=== PATIENT | female | born 1980 | race Caucasian/White ===

== ENCOUNTER → 2020-02-16 08:21 | Outpatient (CLI) | payer OTHER, SELFPAY ==
[2019-07-18 10:09] VITALS: BMI 21.9
--- NOTE | 2020-02-16 08:22 | BI_ITS ---
MAMMOGRAPHY - BILATERAL SCREENING REASON FOR EXAM: Female, 39 years old. Routine annual screening examination. PERTINENT HISTORY: Non-contributory. TECHNIQUE: Digital bilateral breast sayda (3D mammographic acquisition) in the CC and MLO projections. 2-D mediolateral oblique (MLO) and craniocaudad (CC) views of both breasts were obtained. CAD: Full Field Digital Mammography with Computer Added Detection was performed. COMPARISON: None. Baseline examination. FINDINGS: Breast Composition: The breasts are extremely dense, which lowers the sensitivity of mammography. There are no dominant masses or suspicious calcifications. No other significant abnormalities are identified. BI/SCREEN MAMM (CAD) W/SAYDA BILAT IMPRESSION: Negative screening mammogram. Yearly followup mammogram recommended. (A) ASSESSMENT CATEGORY: BIRADS Category 1: Negative. A letter regarding these results will be sent to the patient by the facility within 30 days. Approximately 10% of breast cancers are not detected by mammography. A normal mammogram should not delay biopsy of a clinically suspicious abnormality. [id number] Electronically Signed: Hua Bautista, at 9:23 EDT , Service support ,
[2020-02-21 17:33] LABS: HPV APTIMA, High Risk Negative (Negative)
== END ==
PROVIDERS: Family Provider Internal Medicine; PCP Internal Medicine; Referring Provider Nurse Practitioner Women's Health; Visit Provider Nurse Practitioner Women's Health
DX: Z12.31 Encounter for screening mammogram for malignant neoplasm of breast (principal); Z12.4 Encounter for screening for malignant neoplasm of cervix
CPT/HCPCS: 77063; 77067; 87624; 88175; G0145

== ENCOUNTER → 2021-02-16 12:19 | Outpatient (CLI) | payer OTHER, SELFPAY ==
[2020-02-16 09:01] VITALS: BMI 21.9
--- NOTE | 2021-02-16 12:22 | BI_ITS ---
MAMMOGRAPHY - BILATERAL SCREENING REASON FOR EXAM: Female, 40 years old. Routine annual screening examination. PERTINENT HISTORY: Screening TECHNIQUE: Digital bilateral breast sayda (3D mammographic acquisition) in the CC and MLO projections. 2-D mediolateral oblique (MLO) and craniocaudad (CC) views of both breasts were obtained. CAD: Full Field Digital Mammography with Computer Added Detection was performed. COMPARISON: Previous mammogram obtained on 02/16/2020 FINDINGS: Breast Composition: Dense There are no dominant masses or suspicious calcifications. No other significant abnormalities are identified. BI/SCRN MAMM (CAD)W/SAYDA BILAT IMPRESSION: Stable bilateral screening mammogram. Yearly follow-up mammogram recommended. (A) ASSESSMENT CATEGORY: BIRADS Category 1: Negative. A letter regarding these results will be sent to the patient by the facility within 30 days. BR1 Approximately 10% of breast cancers are not detected by mammography. A normal mammogram should not delay biopsy of a clinically suspicious abnormality. [id number] Electronically Signed: Amadeo Hart DO at 14:02 EDT Tel , Service support ,
== END ==
PROVIDERS: PCP Internal Medicine; Visit Provider Nurse Practitioner Women's Health
DX: Z12.31 Encounter for screening mammogram for malignant neoplasm of breast (principal)
CPT/HCPCS: 77063; 77067

== ENCOUNTER → 2022-02-20 | Outpatient (CLI) | payer OTHER, SELFPAY ==
--- NOTE | 2022-02-20 14:30 | BI_ITS ---
MAMMOGRAPHY - BILATERAL SCREENING REASON FOR EXAM: Female, 41 years old. Routine annual screening examination. PERTINENT HISTORY: Non-contributory. TECHNIQUE: Digital bilateral breast sayda (3D mammographic acquisition) in the CC and MLO projections. 2-D mediolateral oblique (MLO) and craniocaudad (CC) views of both breasts were obtained. CAD: Full Field Digital Mammography with Computer Added Detection was performed. COMPARISON: Comparison is made with prior study dated 02/16/2021 and 02/16/2020. FINDINGS: Breast Composition: The breasts are extremely dense, which lowers the sensitivity of mammography. There are no dominant masses or suspicious calcifications. No other significant abnormalities are identified. There has been no significant change since the prior study. BI/SCRN MAMM (CAD)W/SAYDA BILAT IMPRESSION: Stable bilateral screening mammogram. Yearly follow-up mammogram recommended. (A) ASSESSMENT CATEGORY: BIRADS Category 1: Negative. A letter regarding these results will be sent to the patient by the facility within 30 days. Approximately 10% of breast cancers are not detected by mammography. A normal mammogram should not delay biopsy of a clinically suspicious abnormality. [id number] Electronically Signed: Hua Bautista MD at 8:14 EDT ,
== END | disposition home or self-care (01) ==
LOC: OPBI 14:29
PROVIDERS: PCP Internal Medicine; Referring Provider Nurse Practitioner Women's Health; Visit Provider Nurse Practitioner Women's Health
DX: Z12.31 Encounter for screening mammogram for malignant neoplasm of breast (principal)
CPT/HCPCS: 77063; 77067

== ENCOUNTER → 2022-10-31 | Outpatient (CLI) | payer OTHER, SELFPAY ==
--- NOTE | 2022-10-31 15:59 | US_ITS ---
STUDY: ULTRASOUND OF THE FEMALE PELVIS - COMPLETE REASON FOR EXAM: Female, 41 years old. AUB LMP: TECHNIQUE: Transabdominal and transvaginal TECHNICAL QUALITY: Adequate. COMPARISON: None. FINDINGS: The uterus is anteverted and is in a midline position. The uterus measures 12.2 x 7.9 x 7.4 cm. Normal uterine cervix. The endometrium measures 42 mm in thickness, endometrial lining is heterogeneous and there is suggestion of a possible mass measuring 5.5 x 5.4 x 3.8 cm encasing the IUD possibly representing a hematoma although submucosal fibroid or other endometrial neoplasm not entirely excluded.. There is no demonstrated myometrial mass. I.U.D. - IUD is noted within the lower endometrial canal The right ovary is visualized. The right ovary measures 3.5 x 2.2 x 1.7 cm. There is no right ovarian cyst or ovarian mass. There is no visualized right adnexal mass or complex lesion. There is normal arterial and normal venous vascularity. The left ovary is visualized. The left ovary measures 2.3 x 2 x 1.5 cm. There is no left ovarian cyst or ovarian mass. There is no visualized left adnexal mass or complex lesion. There is normal arterial and normal venous vascularity. There is no fluid in the cul-de-sac. US/Pelvic w/ Transvaginal IMPRESSION: Markedly thickened endometrial lining appears heterogeneous with possible associated mass measuring 5.5 x 5.4 x 3.8 cm which contains malpositioned IUD within the lower uterine segment possibly representing hematoma.. Submucosal fibroid or other nonspecific endometrial mass is not excluded. Clinical correlation recommended MRI of the uterus may be helpful for further evaluation if clinically warranted Electronically Signed: Philip Nielsen MD at 17:38 EDT ,
== END | disposition home or self-care (01) ==
LOC: US 15:58
PROVIDERS: PCP Internal Medicine; Referring Provider Nurse Practitioner Women's Health; Visit Provider Nurse Practitioner Women's Health
DX: N93.9 Abnormal uterine and vaginal bleeding, unspecified (principal); R10.2 Pelvic and perineal pain
CPT/HCPCS: 76830; 76856

== ENCOUNTER → 2022-11-01 | Outpatient (CLI) | payer OTHER, SELFPAY ==
[2022-11-01 09:14] LABS: Absolute Lymphocyte Count 1.55 X10^3/uL (0.83-4.51); Absolute Neutrophil Count 5.2 X10^3/uL (2.0-7.7); Basophil# 0.03 X10^3/uL; Basophil% 0.4 % (0-1); Eosinophils% 1.4 % (0-5); Hematocrit 39.3 % (37-47); Hemoglobin 12.9 g/dL (12.0-15.0); Lymphocyte # 1.55 X10^3/ul (0.83-4.51); Lymphocyte % 21.2 % (19-41); Mean Corp Hgb Conc 32.8 g/dL (32-36); Mean Corpuscular Hgb 30.4 pg (27.0-32.0); Mean Corpuscular Volume 92.7 fL (81-99); Mean Platelet Vol. 10.8 fl (6.2-12.0); Monocyte# 0.41 X10^3/uL; Monocyte% 5.6 % (0-10); NRBC Flagged by Analyzer 0 % (0-5); Neutrophil # 5.19 X10^3/uL (2.7-7.7); Neutrophil % 71.1 % (47-70); Platelet Count 182 K/mm3 (150-450); RBC Distribution Width CV 12.7 % (11.6-14.6); RBC Distribution Width SD 42.9 fl (35.1-43.9); Red Blood Count 4.24 M/mm3 (4.2-5.4); White Blood Count 7.3 K/mm3 (4.4-11.0)
== END | disposition home or self-care (01) ==
LOC: PAVLAB 09:00
PROVIDERS: PCP Internal Medicine; Referring Provider Nurse Practitioner Women's Health; Visit Provider Nurse Practitioner Women's Health
DX: N92.1 Excessive and frequent menstruation with irregular cycle (principal)
CPT/HCPCS: 36415; 85025; 86850; 86900; 86901

== ENCOUNTER 2022-11-07 09:18 | Day surgery (SDC) | payer OTHER, SELFPAY ==
[2022-11-07] VITALS (8 sets, daily range): BP systolic 89–119; BP diastolic 58–78; PULSE 65–79; RESP 18; TEMP 36.2–37.1; O2SAT 100; BMI 22.6
--- NOTE | 2022-11-07 09:12 | PCM.HP.BLA ---
History and Physical Date of Admission: 11/07/22 Intake Vital Signs ? 11/02/2307:35 11/02/2307:41 Height 5 ft 2 in 5 ft 2 in Weight: ? 126 lb 6 oz BMI ? 23.1 BP ? 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 PFSH Surgical History? History of repair of anterior cruciate ligament of right knee Social History? Smoking Status:? Never smoker alcohol intake:? current details:? occasionally substance use type:? does not use caffeine:? Yes what type of physical activity do you participate in:? walking frequency:? daily seatbelt use:? always do you feel safe at home:? Yes additional social history:? -[employer] Patient is a teacher HPI AUB Details: FLAQUITO DAVIS is a 41 year old who presents for prolonged bleeding X 4 weeks. She has an IUD.? States feeling tired and week not thinking clearly.? Normal BUSINESS DEVELOPMENT ASSISTANT exam 02/2022 and IUD strings noted. Her h/h is stable and Ultrasound was performed showing the following: FINDINGS: The uterus is anteverted and is in a midline position.? The uterus measures 12.2 x 7.9 x 7.4 cm.? Normal uterine cervix.? The endometrium measures 42 mm in thickness, endometrial lining is heterogeneous and there is suggestion of a possible mass measuring 5.5 x 5.4 x 3.8 cm encasing the IUD possibly representing a hematoma although submucosal fibroid or other endometrial neoplasm not entirely excluded..? There is no demonstrated myometrial mass. ? I.U.D. - IUD is noted within the lower endometrial canal The right ovary is visualized.? The right ovary measures 3.5 x 2.2 x 1.7 cm.? There is no right ovarian cyst or ovarian mass.? There is no visualized right adnexal mass or complex lesion. There is normal arterial and normal venous vascularity. The left ovary is visualized.? The left ovary measures 2.3 x 2 x 1.5 cm. There is no left ovarian cyst or ovarian mass.? There is no visualized left adnexal mass or complex lesion.? There is normal arterial and normal venous vascularity. There is no fluid in the cul-de-sac. US/Pelvic w/ Transvaginal IMPRESSION: Markedly thickened endometrial lining appears heterogeneous with possible associated mass measuring 5.5 x 5.4 x 3.8 cm which contains malpositioned IUD within the lower uterine segment possibly representing hematoma.. Submucosal fibroid or other nonspecific endometrial mass is not excluded. Clinical correlation recommended MRI of the uterus may be helpful for further evaluation if clinically warranted History ? ? ? 3 ? Elective abortions ? Hx Para ? ? ? 2 ? Spontaneous abortions ? Hx # Term Pregnancies ? Ectopic pregnancies ? Hx # Pregnancies ? Multiple births ? # of living children ? Past Pregnancies Del. Date Name GA/Weeks Outcome Route Bth Weight Infant Gen Labor Lgth Anesthesia Del Locatn Provider FOB Unknown Sandeep-2005 ? Unknown Jitendra-2007 ? ROS Const Constitutional: Reports system reviewed and no additional complaints, except as documented Eyes Eyes: Reports system reviewed and no additional complaints, except as documented GI GI: Denies abdominal pain or change in bowel habits : Reports as per HPI Exam Const General: cooperative and no acute distress Nutritional Appearance: well nourished Orientation: oriented x3 Chest: normal inspiratory effort GI: abdomen non-tender External Female Exam: normal external appearance Speculum Exam - Vagina: normal appearance of the vagina and normal vaginal discharge (heavy menses, multiple clots) Speculum Exam - Cervix: normal appearance of the cervix (active bleeding. No strings were identified and not able to tease down)- on prior exam Bimanual Exam- Vagina & Uterus: uterine shape normal, non-tender and enlarged (minimally) Bimanual Exam- Adnexa, other: normal adnexae, no masses and non-tender Extremities: no edema, no tenderness Coding Level of Care Code Off vis,est,level 3 Diagnoses Menorrhagia with irregular cycle? N92.1 Uterine mass? N85.8 Fatigue? R53.83 IUD complication? T83.9XXA Thickened endometrium? R93.89 Assessment and Plan Assessment and Plan (1) Menorrhagia with irregular cycle: ?Status:?Acute (2) Uterine mass: ?Status:?Acute (3) Fatigue: ?Status:?Acute (4) IUD complication: ?Status:?Acute (5) Thickened endometrium: ?Status:?Acute Plan Stat CBC- stable Rx lysteda After discussing the patient's diagnosis and treatment plan options, patient wishes to proceed with surgical management. I have discussed with the patient the risks, benefits, and alternatives of the procedure which include but are not limited to risks of anesthesia, bleeding, infection, possible damage to bowel, bladder, or surrounding vasculature which could lead to additional surgery to evaluate any complications. Patient agrees to procedure and wishes to proceed. ACOG/uptodate references given for additional information regarding procedure. plan for hysteroscopy D&C, removal of IUD, possible placement of new iud pending what this looks like during the procedure.
[2022-11-07] MEDS: Lactated Ringers 1,000 ML 15 ML IV (09:53)
[2022-11-07 09:56] LABS: Internal QC Validated? YES +Cl - CLEAR BKGD; Pregnancy, Urine Negative Negative
--- NOTE | 2022-11-07 10:37 | DCINST_ITS ---
Discharge Instructions Diet Discharge Diet: No restrictions Activity Discharge Activity: Return to Normal Activity, May Shower and May Take a Tub Bath (after 1 week) May resume sexual activity in: 1-2 weeks Weight Bearing Status: Weight bearing as tolerated Lifting Restrictions: none Dressing / Incision Call your doctor if you observe: Fever of 101 or Higher, Using more than 1 pad per hour, Shortness of breath and Uncontrolled pain Follow Up Care Please Follow Up With: Celi Aceves DO When: Call [phone] to schedule appointment. Test Results: Test results from this visit will be discussed in further detail at your follow- up appointment, if applicable. Discharge Plan Admission Primary Reason for Your Visit: hysteroscopy D&C Attending Provider: Celi Aceves Primary Care Provider: Beata Dennis Discharge Orders/Prescriptions Prescriptions: New naproxen 500 mg tablet 500 mg PO BID PRN (Reason: pain) Qty: 20 0RF No Action levonorgestrel [Mirena] 20 mcg/24 hr (5 years) intrauterine device 1 insert Intrauterine ONCE ferrous sulfate 325 mg (65 mg iron) Capsule, Extended Release 325 mg PO DAILY tranexamic acid [Lysteda] 650 mg tablet 1,300 mg PO TID 5 Days Qty: 30 2RF Referrals / Follow Up: Beata Dennis DO [Primary Care Provider] - Disposition Disposition (needs filled in before D/C Order can be placed): Home, Self Care
--- NOTE | 2022-11-07 11:00 | EMB_PTH ---
PATIENT: FLAQUITO DAVIS [place] [facility] [place][id number] AGE/SX: 41/F ROOM: RE11/07/[address]: Dr. Celi Aceves DO : 1980 BED: DIS: 11/07/2022 SPEC #: [id number] RECD: 11/07/22 15:15 STATUS: LU BROWNING #: [id number] RANDOLPH: 11/07/22 11:[address]: Celi Aceves DEPT: SURGICAL PATHOLOGY RECD BY: Estella Sheikh ENTERED: 11/08/22 08:00 SP TYPE: ENDOM BX/C FRITZHR DR: Dr. Beata Dennis DO Tissues: Endometrium, NOS Procedures: Surgery Specimen Level IV HEADER OPERATION: Hysteroscopy, D & C Symphion, removal of IUD PRE-OP DIAGNOSIS: Menorrhagia with irregular cycle, uterine mass, IUD complication, thickened endometrium TISSUE SUBMITTED: Endometrial curettings MICROSCOPIC DIAGNOSIS Endometrial curettings: Fragments of myometrial tissue (smooth muscle) consistent with leiomyoma and numerous blood clots. A few fragments of superficial endometrial tissue consisting of predominantly stromal tissue with focal exogenous hormone effects. Scant fragments of benign ecto- and endocervical epithelium. See comment. SJ:rg 11/10/2022 COMMENT The specimen predominantly consists of fragments of myometrial tissue consistent with leiomyoma and blood clots. Clinical correlation and appropriate follow up are necessary. MICROSCOPIC DESCRIPTION Slides are reviewed. GROSS DESCRIPTION Received in fixative is one container labeled with the patient's name and designated endometrial curettings. The specimen consists of multiple irregular and hemorrhagic fragments of light mcnair soft tissue that in aggregate measure 8.0 x 5.0 x 0.4 cm. The specimen is totally submitted in eight cassettes. / AM:kristy 11/08/2022 TC:5 CPT: 19430
[2022-11-07] MEDS: Lidocaine 1% (20 ml mdv) 20 ML Vial (11:06)
--- NOTE | 2022-11-07 12:40 | OP.PCM_ITS ---
Problems Associated Problem List Diagnoses (1) Menorrhagia with irregular cycle: (2) Uterine mass: (3) IUD complication: Operative Report Date of Procedure: 11/07/22 preoperative diagnosis: uterine mass, displaced IUD Postoperative diagnosis: uterine mass, displaced IUD Surgeon: Dr. Celi Aceves DO EBL: 200cc urine output: 30cc findings: atrophic appearing uterus specimens removed: endometrial curettings/fibroid hysteroscopic fluid deficit: 2000cc Details of the procedure: Patient was prepped and draped in a normal sterile fashion under MAC anesthesia. A weighted speculum was placed in the vagina and the anterior lip of the cervix was grasped with a single-tooth tenaculum. The IUD string was pulled and the device removed. A paracervical block was placed with 1% lidocaine. Cervix was already found to be dilated to allow passage of a 5 mm hysteroscope. The lining was fully visualized and noted to have a proliferative appearing lining. At ths fundal aspect, a large fibroid like mass was identified, ocupying a large portion of the cavity of the uterus. The symphion device was inserted and the mass was excised to a small nub. The rest of the mass was grasped and delivered through the cervix. After all of this was performed a second look with the hyst eroscope was a little bit foggy with blood and debris, but showed that the mass was removed to be flush with the lining of the endometrium. This likey means that part of the fibroid is intramuscular and not just submucosal. At this point a 2000cc fluid defiit was reached and All instruments were removed from the vagina. A small trickle of blood remained coming from the cervical os. She was given methergine and TXA to help prevent further bleeding. Patient was awoken and taken to recovery in stable condition. Multi Select Codes Urinary/Genital Urinary/Genital CPT Codes: 34534 Hysteroscopic myomectomy
[2022-11-07] MEDS: Methylergonovine 0.2 MG/ML Ampul IM (12:52)
== END 2022-11-07 14:35 | disposition home or self-care (01) ==
LOC: SDC 09:22 → AC 10:38
PROVIDERS: PCP Internal Medicine; Referring Provider Obstetrics & Gynecology; Visit Provider Obstetrics & Gynecology
PROC: 0UB98ZZ Excision of Uterus, Via Natural or Artificial Opening Endoscopic (ICD-10-PCS; CPT 58558; principal; 2022-11-07 10:45)
DX: D25.9 Leiomyoma of uterus, unspecified (principal); N92.1 Excessive and frequent menstruation with irregular cycle; R53.83 Other fatigue; E61.1 Iron deficiency
CPT/HCPCS: 58558; 58301; 00952; 81025; 88305; J7120; J2405

== ENCOUNTER → 2022-11-28 | Outpatient (CLI) | payer OTHER, SELFPAY ==
--- NOTE | 2022-11-28 16:22 | US_ITS ---
STUDY: ULTRASOUND OF THE FEMALE PELVIS - COMPLETE REASON FOR EXAM: Female, 41 years old. follow-up fibroid LMP: TECHNIQUE: Transabdominal and transvaginal TECHNICAL QUALITY: Adequate. COMPARISON: October 31, 2022 FINDINGS: The uterus is anteverted and is in a midline position. The uterus measures 11.8 x 7.1 x 5.5 cm. Normal uterine cervix. The endometrium measures 2 mm in thickness, and is hyperechoic. There is no demonstrated endometrial mass. There are 3 fibroids measuring 3.3 x 3.4 x 3.4 cm, 1.6 x 1.2 x 1.4 cm and 0.8 x 1.2 x 1 cm. I.U.D. - The patient does not have an I.U.D. The right ovary is visualized. The right ovary measures 3.2 x 2.6 x 1.8 cm. There is a cyst measuring 1.4 x 1.4 x 0.9 cm. There is no visualized right adnexal mass or complex lesion. There is normal arterial and normal venous vascularity. The left ovary is visualized. The left ovary measures 2.4 x 1.5 x 1.3 cm. There is no left ovarian cyst or ovarian mass. There is no visualized left adnexal mass or complex lesion. There is normal arterial and normal venous vascularity. There is no fluid in the cul-de-sac. The pre void volume of the bladder was 287.61 ml. US/Pelvic w/ Transvaginal IMPRESSION: Multiple small intrauterine fibroids the largest measuring 3.3 x 3.4 x 3.4 cm. Small right ovarian cyst measuring 1.4 x 1.4 x 0.9 cm Electronically Signed: Philip Nielsen MD at 21:11 EDT ,
== END | disposition home or self-care (01) ==
PROVIDERS: PCP Internal Medicine; Referring Provider Obstetrics & Gynecology; Visit Provider Obstetrics & Gynecology
DX: D25.9 Leiomyoma of uterus, unspecified (principal)
CPT/HCPCS: 76830; 76856

== ENCOUNTER → 2023-02-22 | Outpatient (CLI) | payer OTHER, SELFPAY ==
--- NOTE | 2023-02-22 13:00 | BI_ITS ---
MAMMOGRAPHY - BILATERAL SCREENING REASON FOR EXAM: Female, 42 years old. Routine annual screening examination. PERTINENT HISTORY: Non-contributory. TECHNIQUE: Digital bilateral breast sayda (3D mammographic acquisition) in the CC and MLO projections. 2-D mediolateral oblique (MLO) and craniocaudad (CC) views of both breasts were obtained. CAD: Full Field Digital Mammography with Computer Added Detection was performed. COMPARISON: Comparison is made with prior study February 20, 2022 and February 16, 2021. FINDINGS: Breast Composition: The breasts are extremely dense, which lowers the sensitivity of mammography. There are no dominant masses or suspicious calcifications. No other significant abnormalities are identified. There has been no significant change since the prior study. BI/SCRN MAMM (CAD)W/SAYDA BILAT IMPRESSION: Stable bilateral screening mammogram. Yearly follow-up mammogram recommended. (A) ASSESSMENT CATEGORY: BIRADS Category 1: Negative. A letter regarding these results will be sent to the patient by the facility within 30 days. Approximately 10% of breast cancers are not detected by mammography. A normal mammogram should not delay biopsy of a clinically suspicious abnormality. [id number] Electronically Signed: Hua Bautista MD at 13:56 EDT ,
== END | disposition home or self-care (01) ==
PROVIDERS: PCP Internal Medicine; Referring Provider Obstetrics & Gynecology; Visit Provider Obstetrics & Gynecology
DX: Z12.31 Encounter for screening mammogram for malignant neoplasm of breast (principal)
CPT/HCPCS: 77063; 77067

== ENCOUNTER → 2023-08-21 | Outpatient (CLI) | payer OTHER, SELFPAY ==
--- NOTE | 2023-08-21 08:02 | US_ITS ---
STUDY: ULTRASOUND OF THE FEMALE PELVIS - COMPLETE REASON FOR EXAM: Female, 42 years old. Fibroid, IUD check LMP: Unsure. TECHNIQUE: Transabdominal and Transvaginal TECHNICAL QUALITY: Adequate. COMPARISON: Comparison is made with prior study of November 28, 2022. FINDINGS: The uterus is anteverted and is in a midline position. The uterus is enlarged and measures 11.8 cm x 7.6 cm x 6 cm. Normal uterine cervix. The endometrium measures 4.3 mm in thickness, and is hyperechoic. There is no demonstrated endometrial mass. There is a 3 cm x 2.5 cm x 2.8 cm uterine fibroid. I.U.D. - The patient does have an I.U.D.. The IUD is in the lower aspect of the fundus. The right ovary is visualized. The right ovary measures 5.6 cm x 5.2 cm x 3 cm. There is a 3.4 cm x 2.7 cm x 2.4 cm cyst in the right ovary. There is also evidence of a 2.9 cm x 3.4 cm by 2 cm cyst. A complex cyst is also seen measuring 2.6 cm x 2.3 cm x 2.4 cm. There is no visualized right adnexal mass or complex lesion. There is normal arterial and normal venous vascularity. The left ovary is visualized. The left ovary measures 2.6 cm x 2 cm x 1.4 cm. There is no left ovarian cyst or ovarian mass. There is no visualized left adnexal mass or complex lesion. There is normal arterial and normal venous vascularity. There is no fluid in the cul-de-sac. The pre void volume of the bladder was 703 ml. Polycystic ovary disease: No. US/Pelvic (Non ) IMPRESSION: Enlarged fibroid uterus. The IUD is in the lower aspect of the uterine fundus. Cysts are seen in the right ovary. There is a 2.6 cm x 2.3 cm x 2.4 cm right ovarian complex cyst. Sonographic follow-up recommended. Electronically Signed: Hua Bautista MD at 13:05 EST ,
--- OUTSIDE RECORDS SUMMARY | 2023-08-21 08:15 | XMS RPT_ITS | CCD ---
Author Name Unknown Address [address] [place] [address] Organization [facility] Care Team Providers Care Deputy Jailer Name Role Phone Kisha Almaguer NP Unavailable [phone] Allergies Allergy Classification Reported Allergen(s) Allergy Type Date of Onset Reaction(s) Facility (2 sources) Sulfonamides (Antibiotic) drug allergy 02-12-2017 [facility] Problems Active Problems Problem Classification Problem Date Documented Date Episodic/Chronic Unclassified (1 source) Gynecologic examination ; Translations: [Encounter for gynecological examination (general) (routine) without abnormal findings] Onset: 02-12-2017 02-12-2017 Past or Other Problems Problem Classification Problem Date Documented Da te Episodic/Chronic Other injuries and conditions due to external causes (2 sources) Fracture of bone; Translations: [Other injury of unspecified body region] Onset: 02-12-2017 02-12-2017 Episodic Results Test Name Value Interpretation Reference Range Facil ity Vital Signs Date Time Vital Sign Value Performing Clinician Facility 02-12-2017 13:07-0400 BMI (Body Mass Index) 21.95 kg/m2 Kisha Almaguer NP [facility] 02-12-2017 13:07-0400 Body Temperature 98.1 [degF] Kisha Almaguer NP [facility] 02-12-2017 13:07-0400 BP Diastolic 72 mm[Hg] Kisha Almaguer NP [facility] 02-12-2017 13:07-0400 BP Systolic 118 mm[Hg] Kisha Almaguer NP [facility] 02-12-2017 13:07-0400 Height 157.48 cm Kisha Almaguer NP [facility] 02-12-2017 13:07-0400 Pulse (Heart Rate) 60 /min Kisha Almaguer NP [facility] 02-12-2017 13: Respiratory Rate 16 /min Kisha Almaguer NP [facility] 02-12-2017 13:0 Weight 54.43 kg Kisha Almaguer NP [facility] Procedures Date Procedure Procedure Detail Performing Clinician Start: 02-12-2017 Gynecologic examination Routine gynecological examination Kisha Almaguer NP Plan of Treatment Date Care Activity Detail Author Start: 02-12-2017 End: 02-12-2017 Appointment Appointment [facility] Additional Source Comments FOR RECORDS PERTAINING TO PATIENTS WHO ARE OR HAVE BEEN ENROLLED IN A CHEMICAL DEPENDENCY/SUBSTANCEABUSE PROGRAM, SOME INFORMATION MAY BE OMITTED. This clinical summary was aggregated from multiple sources. Caution should be exercised in using it in the provision of clinical care. This summary normalizes information from multiple sources, and as a consequence, information in this document may materially change the coding, format and clinical context of patient data. In addition, data may be omitted in some cases. CLINICAL DECISIONS SHOULD BE BASED ON THE PRIMARY CLINICAL RECORDS. [facility]. provides no warranty or guarantee of the accuracy or completeness of information in this document.
== END | disposition home or self-care (01) ==
LOC: OPUS 07:57
PROVIDERS: PCP Internal Medicine; Referring Provider Nurse Practitioner Women's Health; Visit Provider Nurse Practitioner Women's Health
DX: D25.9 Leiomyoma of uterus, unspecified (principal); Z30.431 Encounter for routine checking of intrauterine contraceptive device
CPT/HCPCS: 76830; 76856

== ENCOUNTER 2023-12-25 05:37 | Day surgery (SDC) | payer OTHER, SELFPAY ==
[2023-12-18 11:02] LABS: Hemoglobin 14.6 g/dL (12.0-15.0); Mean Corp Hgb Conc 32.4 g/dL (32-36); Mean Corpuscular Volume 92.4 fL (81-99); Mean Platelet Vol. 11.2 fl (6.2-12.0); Platelet Count 216 K/mm3 (150-450); RBC Distribution Width CV 13.2 % (11.6-14.6); RBC Distribution Width SD 44.8 fl (35.1-43.9); Red Blood Count 4.87 M/mm3 (4.2-5.4); White Blood Count 5.5 K/mm3 (4.4-11.0)
[2023-12-18 11:06] LABS: Prothrombin Time (Protime)PT. 13.5 SECONDS (11.7-14.9)
[2023-12-18 11:07] LABS: Partial Thromboplast Time 29.2 Seconds (24.1-36.2)
[2023-12-18 11:13] LABS: AST(SGOT) 20 U/L (15-37); Alanine Aminotransfer ALT/SGPT 21 U/L (13-56); Albumin, Serum 3.8 g/dL (3.2-5.0); Alkaline Phosphatase 44 U/L (45-117); Bilirubin, Direct 0.14 mg/dL (0.00-0.30); Globulin 3.5 g/dL (2.2-4.2); Magnesium 2.5 mg/dL (1.6-2.6); Protein, Total 7.3 g/dL (6.4-8.2)
[2023-12-25] VITALS (12 sets, daily range): BP systolic 104–130; BP diastolic 61–75; PULSE 60–73; RESP 12–18; TEMP 36.3–36.6; O2SAT 96–100; BMI 24.0
--- NOTE | 2023-12-25 | HYST_PTH ---
PATIENT: FLAQUITO DAVIS LOC: [facility] [place] U#:[id number] AGE/SX: 43/F ROOM: RE12/25/[address]: Dr. Celi Aceves DO : 1980 BED: DIS: 12/25/2023 SPEC #: [id number] RECD: 12/25/23 12:57 STATUS: LU NAM #: [id number] RANDOLPH: 12/25/23 00:[address]: Celi Aceves DEPT: SURGICAL PATHOLOGY RECD BY: Omkar Gay ENTERED: 12/25/23 12:57 SP TYPE: HYSTERECT OTHR DR: No Primary Care Phys Tissues: Uterus, NOS Procedures: Surgery Specimen Level V HEADER OPERATION: ERAS, laparoscopic robotic hysterectomy, bilateral salpingectomy PRE-OP DIAGNOSIS: Uterine fibroids TISSUE SUBMITTED: Uterus, cervix, bilateral fallopian tubes MICROSCOPIC DIAGNOSIS Uterus, cervix, bilateral fallopian tubes, hysterectomy, bilateral salpingectomy: Cervix - Chronic inflammation Endometrium - Proliferative endometrium Myometrium - Submucosa, intramural and subserosal leiomyomas (largest measuring 5.0cm in greatest dimension) Bilateral fallopian tubes- no pathologic diagnosis. ADRIAN/ 12/26/2023 MICROSCOPIC DESCRIPTION Slides are reviewed. GROSS DESCRIPTION Received in fixative is one container labeled with the patient's name and designated uterus, cervix, bilateral fallopian tubes. The specimen consists of a hysterectomy specimen consisting of uterus with cervix and attached bilateral fallopian tubes. The uterus with cervix weighs 200 gm and measures 11.5 x 8.0 x 6.0 cm. A subserosal nodule is noted. The serosal surface is mcnair glistening. The ectocervical mucosa is unremarkable. The external os is slit like in contour. The endocervical canal measures 3.5 cm in length and the endocervical mucosa is unremarkable. The triangular endometrial cavity measures 4.5 cm in length and 3.0 cm in width. The endometrium is mcnair, glistening without any mass lesions and measures 0.1 cm in thickness. Sections of the uterine wall reveal multiple submucosal, intramural and one subserosal nodular masses. Largest mass is present intramural to submucosal location at the fundus of the uterus measuring 5.0cm in greatest dimension. Sections of these masses reveal mcnair whorled cut surfaces without areas of hemorrhage, necrosis or cystic degeneration. Uterine wall measures up to 2.5cm in thickness. Right fallopian tube measures 10.0cm in length and 0.6cm in diameter. Fimbrial end is identified. Sections reveal unremarkable cut surfaces. Left fallopian tube is similar appearance to right and measures 7.5cm in length and 0.5cm in diameter. Peanut Roaster sections are submitted in 10 cassettes as follows: 1 - anterior cervix, 2 - posterior cervix, 3 & 4 - anterior uterine wall, 5 & 6 - posterior uterine wall (cassette 6 contains a minute submucosal nodule), 7- largest nodular mass, 8- second largest and third largest nodular masses, 9- right fallopian tube, 10- left fallopian tube. SJ: 12/25/2023 TC:1 CPT: 01502
[2023-12-25 06:19] LABS: Internal QC Validated? YES +Cl - CLEAR BKGD; Pregnancy, Urine Negative Negative
[2023-12-25] MEDS: Lactated Ringers 1,000 ML 40 ML IV (06:43)
[2023-12-25] MEDS: Gabapentin 600 MG Tablet PO (06:48)
[2023-12-25] MEDS: Acetaminophen 500 MG Tablet 1000 MG PO (06:48)
[2023-12-25] MEDS: Phenazopyridine 95 MG Tablet 190 MG PO (06:48)
[2023-12-25] MEDS: Magnesium 1 GM over 15 mins IV (06:52)
--- NOTE | 2023-12-25 07:22 | PCM.HP.BLA ---
History and Physical Date of Admission: 12/25/23 Intake Vital Signs 08/29/2413:06 12/17/2409:06 12/17/2409:07 Height 5 ft 2 in 5 ft 2 in 5 ft 2 in Weight: 132 lb BMI 24.1 BP 131/82 H Intake Visit Reasons: TRH Head Of Mathematics Required: No Is patient in pain?: No Allergies sulfasalazine Allergy (Mild, Verified 12/18/23 10:05) rash Medications ?Medication ?Instructions ?Recorded ?Confirmed ?Type cyclobenzaprine 10 mg tablet 10 mg PO TID PRN muscle spasm #21 08/29/23 12/18/23 Rx tabs levonorgestrel 0.15 mg-ethinyl 1 tab PO DAILY #28 tabs 08/29/23 12/18/23 Rx estradiol 0.03 mg tablet (Altavera (28)) Lactobacillus acidophilus 10 100 mmu cells PO DAILY 12/17/23 12/18/23 History billion cell capsule (Probiotic) ascorbic acid (vitamin C) 1,000 mg 1 g PO DAILY 12/17/23 12/18/23 History tablet (C-1000) magnesium 250 mg tablet 500 mg PO DAILY 12/17/23 12/18/23 History multivitamin (Daily Vitamin 1 tab PO DAILY 12/17/23 12/18/23 History Formula tablet) Post menopausal: No Patient : No : No [facility] Medical History Status post hysteroscopy (~11/07/22) Alcohol use Easy bruising Restless legs Back pain Migraine headache Heartburn Non-smoker Leg cramps Surgical History History of repair of anterior cruciate ligament of right knee Social History Smoking Status: Never smoker alcohol intake: current details: occasionally substance use type: does not use caffeine: Yes what type of physical activity do you participate in: walking frequency: daily seatbelt use: always do you feel safe at home: Yes additional social history: -[place]- [place] Patient is a teacher HPI [facility] Details: FLAQUITO DAVIS is a 43 year old who presents for pre-operative exam for robotic hysterectomy. She has tried and failed treatment with myomectomy and mirena IUD. Her endometrium a year ago was benign and she has had an IUD in until just 4 months ago. Ultrasound recently shows the following: STUDY: ULTRASOUND OF THE FEMALE PELVIS - COMPLETE REASON FOR EXAM: Female, 42 years old. Fibroid, IUD check LMP: Unsure. TECHNIQUE: Transabdominal and Transvaginal TECHNICAL QUALITY: Adequate. COMPARISON: Comparison is made with prior study of November 28, 2022. FINDINGS: The uterus is anteverted and is in a midline position. The uterus is enlarged and measures 11.8 cm x 7.6 cm x 6 cm. Normal uterine cervix. The endometrium measures 4.3 mm in thickness, and is hyperechoic. There is no demonstrated endometrial mass. There is a 3 cm x 2.5 cm x 2.8 cm uterine fibroid. I.U.D. - The patient does have an I.U.D.. The IUD is in the lower aspect of the fundus. The right ovary is visualized. The right ovary measures 5.6 cm x 5.2 cm x 3 cm. There is a 3.4 cm x 2.7 cm x 2.4 cm cyst in the right ovary. There is also evidence of a 2.9 cm x 3.4 cm by 2 cm cyst. A complex cyst is also seen measuring 2.6 cm x 2.3 cm x 2.4 cm. There is no visualized right adnexal mass or complex lesion. There is normal arterial and normal venous vascularity. The left ovary is visualized. The left ovary measures 2.6 cm x 2 cm x 1.4 cm. There is no left ovarian cyst or ovarian mass. There is no visualized left adnexal mass or complex lesion. There is normal arterial and normal venous vascularity. There is no fluid in the cul-de-sac. The pre void volume of the bladder was 703 ml. Polycystic ovary disease: No. US/Pelvic (Non ) IMPRESSION: Enlarged fibroid uterus. The IUD is in the lower aspect of the uterine fundus. Cysts are seen in the right ovary. There is a 2.6 cm x 2.3 cm x 2.4 cm right ovarian complex cyst. Sonographic follow-up recommended. History 3 Elective abortions Hx Para 2 Spontaneous abortions Hx # Term Pregnancies Ectopic pregnancies Hx # Pregnancies Multiple births # of living children Past Pregnancies Del. Date Name GA/Weeks Outcome Route Bth Weight Gen Labor Lgth Anesthesia Del Locatn Provider FOB Unknown Sandeep-2005 Unknown Jitendra-2008 ROS Const ROS Unobtainable: All systems reviewed & are unremarkable except as noted in H Resp Resp: Reports system reviewed and no additional complaints, except as documented; Denies cough GI GI: Reports as per HPI Psych Psych: Reports system reviewed and no additional complaints, except as documented Exam Const General: cooperative, healthy appearing, comfortable and no acute distress Resp Effort & Inspection: normal respiratory effort Skin General: no rashes or lesions noted Psych Appearance: grossly normal Speech and Movement: speech and movement normal Coding Level of Care Code Off vis,est,level 4 Diagnoses Intramural leiomyoma of uterus D25.1 Uterine leiomyoma location: intramural Uterine mass N85.8 Menorrhagia with irregular cycle N92.1 Fatigue R53.83 Assessment and Plan Assessment and Plan (1) Uterine fibroid: Status: Acute Qualifiers: Uterine leiomyoma location: intramural Qualified Code(s): D25.1 - Intramural leiomyoma of uterus Comment: partially surgically removed. IUD up near fibroid. Will recheck fibroid and IUD placement in 6 months:regrowth of fibroid. IUD low uterus/removed. (2) Uterine mass: Status: Acute (3) Menorrhagia with irregular cycle: Status: Acute (4) Fatigue: Status: Acute Plan: After discussing the patient's diagnosis and treatment plan options, patient wishes to proceed with surgical management. I have discussed with the patient the risks, benefits, and alternatives of the procedure which include but are not limited to risks of anesthesia, bleeding, infection, possible damage to bowel, bladder, or surrounding vasculature which could lead to additional surgery to evaluate any complications. Patient agrees to procedure and wishes to proceed. ACOG/uptodate references given for additional information regarding procedure. plan for total robotic hysterectomy, bilateral salpingectomy, cystoscopy
--- NOTE | 2023-12-25 07:23 | DCINST_ITS ---
Discharge Instructions Diet Discharge Diet: No restrictions Activity May resume sexual activity in: 6 weeks Weight Bearing Status: Full weight bearing Dressing / Incision Call your doctor if your incision/area has: Continuous Slow Oozing, Sudden Increased Bleeding, Increased Pain/ Swelling, Increased Redness and Foul Smelling Discharge Call your doctor if you observe: Fever of 101 or Higher, Using more than 1 pad per hour, Shortness of breath, Chest pain and Uncontrolled pain Suture Line Care: Avoid Pulling/Pushing and Avoid Pinching/Bending Remove Dressing in: 1 week (if present) Cleanse incision/area with: Soap & Water and Keep Dressing Clean & Dry Follow Up Care Please Follow Up With: Celi Aceves DO When: Call to make an appointment with your doctor for a postop visit in 2 and 6 weeks Test Results: Test results from this visit will be discussed in further detail at your follow- up appointment, if applicable. Discharge Plan Admission Primary Reason for Your Visit: hysterectomy Attending Provider: Celi Aceves Primary Care Provider: Care Physician,No Primary Instructions Print Language: [place] Discharge Orders/Prescriptions Prescriptions: New ibuprofen 800 mg tablet 800 mg PO Q8H PRN (Reason: pain) Qty: 30 0RF ondansetron HCl 4 mg tablet 4 mg PO Q6H PRN (Reason: nausea and vomiting) Qty: 20 0RF oxycodone-acetaminophen [Percocet] 5-325 mg tablet 1 tab PO Q4H PRN (Reason: pain) 7 Days Qty: 30 0RF Rx Instructions: 1-2 tabs q 4 hrs as needed for pain Continued cyclobenzaprine 10 mg tablet 10 mg PO TID PRN (Reason: muscle spasm) Qty: 21 0RF levonorgestrel-ethinyl estrad [Altavera (28)] 0.15-0.03 mg tablet 1 tab PO DAILY Qty: 28 6RF multivitamin [Daily Vitamin Formula] Tablet 1 tab PO DAILY ascorbic acid (vitamin C) [C-1000] 1,000 mg tablet 1 g PO DAILY Probiotic 10 billion cell capsule 100 mmu cells PO DAILY magnesium 250 mg tablet 500 mg PO DAILY Other Ambulatory Orders: ,Urine (Routine) Timeframe: 20231225 Facility: [facility] - Location: Laboratory Ordered By: Dr. Celi Aceves Referrals / Follow Up: Beata Dennis DO [Med Staff - Senior Software Manager] - Disposition Disposition (needs filled in before D/C Order can be placed): Home, Self Care
[2023-12-25] MEDS: Cefazolin 2 GM in 0.9% Normal Saline (100mL Bag) 100 ML IV (07:39)
[2023-12-25] MEDS: Bupivacaine 0.25% 30 ML Vial (07:55)
[2023-12-25 07:59] LABS: Bedside Glucose 82 mg/dL (74-106)
--- NOTE | 2023-12-25 08:57 | PCM.OPRPT ---
Problems Associated Problem List Diagnoses (1) Uterine fibroid: (2) Uterine mass: (3) Menorrhagia with irregular cycle: Report of Operation Description of Surgical Findings:: Findings: 13cm size uterus, normal appearing ovaries and tubes. On exploration of the abdominal cavity the uterus, adnexa, bowel, and liver were found to be normal. Cystoscopy showed no evidence of leaking at approximately 250 cc of normal saline, positive ureteral orifices and jet flow are seen and no suture material was appreciated in the bladder. Specimens removed: Uterus and cervix, Bilateral tubes and ovaries Reason for surgery: This is a 43-year-old who presented to my office with history of heavy periods and failed myomectomy. The planned procedure is for a robotic hysterectomy the risks benefits and alternatives were discussed with the patient the patient had a clear understanding of the procedure and a consent form was signed. Surgeon: Celi Aceves health and safety advisor: Preston Paredes Type of Anesthesia: General Specimen's removed: uterus, cervix, fallopian tubes Drains: none Estimated Blood Loss (mL): 30cc Description of Procedure: Procedure: The patient was placed in the dorsal low lithotomy position and prepped and draped in the normal sterile fashion both abdominally and in the perineum. Her legs were placed in stirrups a Castellanos catheter was inserted into the urethra without difficulty. A weighted speculum was placed in the vagina and a single-tooth tenaculum was used to grasp the anterior lip of the cervix. An advincula uterine manipulator was inserted through the cervix without complication. It was then tied into place at the 2 and 10:00 locations on the cervix. Gloves were changed and attention was turned towards the abdomen. Approximately 20 cm above the pubic symphysis in the midline, and after Marcaine injection, a 8 mm incision was made. An 8 mm trocar was inserted through the laparoscope, then inserted into the abdomen under direct visualization using the laparoscope. Good abdominal placement was noted and no complications were appreciated. An air seal device was utilized to create pneumoperitoneum. At 12 cm lateral to the midline on the left and right sides 8 mm accessory ports were placed. Next a left upper quadrant 8 mm assistant inventory manager port site was placed. The patient was placed in steep Trendelenburg position. The robot was docked. The hysterectomy was initiated first by taking down the round ligament on each side using the vessel sealer device. The fallopian tube on the right side was grasped and the underlying mesosalpinx was cauterized and cut to the cornual region of the uterus. The broad ligament was then and taken down using the vessel sealer device. Next the bladder flap was taken down without complications. This was done using monopolar cautery to the level of the cervical vaginal junction. After the bladder flap was created, uterine vessels were then isolated and cauterized using the vessel sealer device and EndoShears. The same procedure was repeat on the left side of the uterus. At this point the uterine vessels were taken down further starting from the ascending branch, dissecting along the edges of the cervix to the level of the cervical vaginal junction with hemostasis appreciated. The cervical vaginal junction was then using monopolar cautery in a circumferential pattern across the superior aspect of the cervix. The specimen was delivered through the vagina and sent to pathology. The remaining vaginal cuff was then closed using a V lock suture. This was performed in a running technique. Excellent hemostasis was obtained and good closure was noted. Irrigation was then performed. All operative sites were noted to be hemostatic. Fine adhesions of the right side of the bowel were taken down off the pelvic side wall using monopolar cautery. A cystoscopy was performed with a 70 degree cystoscope through the urethra into the bladder without complication. The bladder was instilled with approximately 250 cc of normal saline. Intraoperative images were made. Ureteral orifices and jets were identified. No suture material was appreciated in the bladder. The bladder was then drained and cystoscope was removed. The abdominal cavity was again examined using the laparoscope after the robot was undocked. All operative sites were noted to be hemostatic. The trochars were removed under direct visualization without complication and pneumoperitoneum was reduced. At this point the skin was then closed using 4-0 Monocryl subcuticular stitch and sealed with surgical glue. The patient tolerated the procedure well sponge lap and needle counts were correct x2 the patient was taken to the recovery room in stable condition. Admit VTE Documentation VTE Present on Admission: Yes VTE Pharm Prophylaxis ordered?: No Multi Select Codes Urinary/Genital Urinary/Genital CPT Codes: 14803 Cystoscopy and 88660 TLH+BS/O >250gr uterus
[2023-12-25] MEDS: Lactated Ringers @ 70 MLS/HR 70 ML IV (09:18)
== END 2023-12-25 14:25 | disposition home or self-care (01) ==
LOC: SDC 05:38 → AC 05:40
PROVIDERS: Anesthesiology; Referring Provider Obstetrics & Gynecology; Visit Provider Obstetrics & Gynecology
PROC: 0UT94ZZ Resection of Uterus, Percutaneous Endoscopic Approach (ICD-10-PCS; CPT 58570; principal; 2023-12-25 07:10)
DX: D25.1 Intramural leiomyoma of uterus (principal); N92.1 Excessive and frequent menstruation with irregular cycle; N72 Inflammatory disease of cervix uteri; D25.0 Submucous leiomyoma of uterus; D25.2 Subserosal leiomyoma of uterus
CPT/HCPCS: 58570; S2900; 00840; 36415; 80076; 81025; 82962; 83735; 85027; 85610; 85730; 86850; 86900; 86901; 88307; J7120; J2405; J3475; J3490

== ENCOUNTER → 2024-03-24 | Outpatient (CLI) | payer OTHER, SELFPAY ==
--- NOTE | 2024-03-24 08:30 | BI_ITS ---
MAMMOGRAPHY - BILATERAL SCREENING 3-D TOMOSYNTHESIS REASON FOR EXAM: Female, 43 years old. breast cancer screening PERTINENT HISTORY: No significant family history. TECHNIQUE: 2-D mammograms and 3-D Tomosynthesis of the breast (s) were performed. CAD was performed. COMPARISON: 02/22/2023 FINDINGS: The breast composition is Extermely dense tissue. Scattered benign calcifications are seen. No dense spiculated masses or suspicious microcalcifications are identified. No architectural distortion is identified. There is no skin thickening or retraction. There has been no significant change since the prior study. BI/SCRN MAMM (CAD)W/SAYDA BILAT IMPRESSION: No mammographic signs of malignancy. Routine yearly mammograms recommended. ASSESSMENT CATEGORY: BIRADS Category 1: Negative. A letter regarding these results will be sent to the patient by the facility within 30 days. FOLLOW UP RECOMMENDATION: Yearly follow up mammogram recommended. (A) Approximately 10% of breast cancers are not detected by mammography. A normal mammogram should not delay biopsy of a clinically suspicious abnormality. Electronically Signed: Santi Loving MD at 14:54 EDT ,
[2024-03-24 10:02] LABS: Vitamin D,25 Hydroxy 49.1 ng/mL
[2024-03-24 10:08] LABS: T4 Free Direct 0.92 ng/dL (0.76-1.46)
[2024-03-25 04:07] LABS: Thyroid Peroxidase AB 10 IU/mL (0-34)
== END | disposition home or self-care (01) ==
PROVIDERS: Referring Provider Nurse Practitioner Women's Health; Visit Provider Nurse Practitioner Women's Health
DX: Z12.31 Encounter for screening mammogram for malignant neoplasm of breast (principal); R53.83 Other fatigue; Z13.21 Encounter for screening for nutritional disorder
CPT/HCPCS: 36415; 77063; 77067; 82306; 84439; 84443; 86376

== ENCOUNTER → 2025-06-10 | Outpatient (CLI) | payer OTHER, SELFPAY ==
--- NOTE | 2025-06-10 08:45 | BI_ITS ---
EXAM: SCRN MAMM (CAD)W/SAYDA BILAT DATE: 06/10/2025 CLINICAL HISTORY: F, Age 44 y/o , SCREENING MAMMOGRAM FOR BREAST CANCER No family history. TECHNIQUE: Procedure Code: [id number] Modality: MG Procedure: SCRN MAMM (CAD)W/SAYDA BILAT COMPARISON: Prior exam(s) dated March 24, 2024.. FINDINGS: TISSUE DENSITY: The breasts are extremely dense, which lowers the sensitivity of mammography. Bilateral Breast Mammographic Findings: No significant masses, calcifications or other abnormalities are identified. No suspicious masses, areas of developing architectural distortion, or suspicious calcifications. There has been no significant interval change. BI/SCRN MAMM (CAD)W/SAYDA BILAT IMPRESSION: Stable bilateral screening mammogram. OVERALL FINAL ASSESSMENT BI-RADS 1: NEGATIVE. RECOMMENDATION: Routine annual follow-up in 1 Year Additional Recommendation none A letter with findings and recommendations will be mailed to the patient. Reading Location: [place] [address]
== END | disposition home or self-care (01) ==
PROVIDERS: PCP Family Medicine; Referring Provider Nurse Practitioner Women's Health; Visit Provider Nurse Practitioner Women's Health
DX: Z12.31 Encounter for screening mammogram for malignant neoplasm of breast (principal)
CPT/HCPCS: 77063; 77067